=== PATIENT | male | born 1995 | race Caucasian/White ===

== ENCOUNTER 2021-08-23 22:50 | Emergency (ER) | payer OTHER ==
[~2021-08-23] VITALS: Ht 180.3 cm; Wt 109.0 kg
[2021-08-23 23:26] LABS: HEMATOCRIT 38.4 % (39.0-50.0); HEMOGLOBIN 13.5 g/dl (14.0-18.0); IMMATURE GRANULOCYTES 0.6 % (0.0-5.0); MEAN CELL VOLUME 86.3 fL CALC (80.0-100.0); MEAN CORPUSCULAR HGB 30.3 pG CALC (26.0-32.0); MEAN CORPUSCULAR HGB CONC 35.2 g/dL CAL (32.0-36.0); NEUT# 2.44 thou/uL (1.82-7.42); RED BLOOD COUNT 4.45 mill/uL (4.70-6.10); RED CELL DISTRI WIDTH 11.7 % (11.5-15.5)
[2021-08-23 23:40] LABS: ALBUMIN 4.7 g/dL (3.2-5.0); ALKALINE PHOSPHATASE 78 u/l (38-126); AMYLASE 74 u/l (30-110); ANION GAP 12 (6-22 (CALC)); BILIRUBIN, TOTAL 0.4 mg/dL (0.0-1.4); BUN 14 mg/dL (9-20); BUN/CREATININE RATIO 17 (12-20 (CALC)); CARBON DIOXIDE 27 mmol/l (22-30); CHLORIDE 104 mmol/l (95-108); CPK 68 u/l (52-200); CREATININE 0.8 mg/dL (0.7-1.3); GFR FOR AFR.AMER. > 60 ML/MIN (>=60 (CALC)); GFR OTHER RACES > 60 ML/MIN (>=60 (CALC)); LIPASE 128 u/l (23-300); POTASSIUM 3.9 mmol/l (3.5-5.1); SGOT/AST 39 u/l (17-59); SODIUM 139 mmol/l (137-146); TOTAL PROTEIN 7.5 g/dL (6.3-8.2)
[2021-08-24] MEDS ORDERED: EC-NAPROXEN500 MG PO (00:43)
[2021-08-24] MEDS ORDERED: METHOCARBAMOL500 MG PO (00:43)
[2021-08-24 00:46] VITALS: BP 143/89
== END 2021-08-24 01:00 | disposition home or self-care (01) | DRG 204 ==
LOC: ED 22:50
PROVIDERS: Internal Medicine
DX: R07.81 Pleurodynia (principal); M62.838 Other muscle spasm; W11.XXXA Fall on and from ladder, initial encounter; Y93.E9 Activity, other interior property and clothing maintenance; Y92.009 Unspecified place in unspecified non-institutional (private) residence as the place of occurrence of the external cause

== ENCOUNTER 2021-12-01 20:09 | Emergency (ER) | payer MEDICAID ==
[2021-12-01] VITALS (10 sets, daily range): BP systolic 108–130; BP diastolic 57–70
[~2021-12-01] VITALS: Ht 180.3 cm; Wt 109.0 kg
[~2021-12-01 20:09] MED LIST: EC-NAPROXEN500 MG PO; METHOCARBAMOL500 MG PO
[2021-12-01 21:04] LABS: HEMATOCRIT 38.2 % (39.0-50.0); HEMOGLOBIN 13.2 g/dl (14.0-18.0); IMMATURE GRANULOCYTES 1.2 % (0.0-5.0); MEAN CELL VOLUME 86.2 fL CALC (80.0-100.0); MEAN CORPUSCULAR HGB 29.8 pG CALC (26.0-32.0); MEAN CORPUSCULAR HGB CONC 34.6 g/dL CAL (32.0-36.0); NEUT# 2.34 thou/uL (1.82-7.42); RED BLOOD COUNT 4.43 mill/uL (4.70-6.10); RED CELL DISTRI WIDTH 12.6 % (11.5-15.5)
[2021-12-01 21:11] LABS: ALBUMIN 4.4 g/dL (3.2-5.0); ALKALINE PHOSPHATASE 60 u/l (38-126); ANION GAP 14 (6-22 (CALC)); BILIRUBIN, TOTAL 0.3 mg/dL (0.0-1.4); BUN 15 mg/dL (9-20); BUN/CREATININE RATIO 18 (12-20 (CALC)); CARBON DIOXIDE 24 mmol/l (22-30); CHLORIDE 106 mmol/l (95-108); CREATININE 0.8 mg/dL (0.7-1.3); GFR FOR AFR.AMER. > 60 ML/MIN (>=60 (CALC)); GFR OTHER RACES > 60 ML/MIN (>=60 (CALC)); POTASSIUM 3.5 mmol/l (3.5-5.1); SGOT/AST 43 u/l (17-59); SODIUM 140 mmol/l (137-146)
[2021-12-01 21:17] LABS: ACT PARTIAL THROMBO TIME 17.9 SECONDS (20.0-32.5); PROTHROMBIN TIME 9.7 SECONDS (9.0-12.5)
[2021-12-01 23:52] LABS: URINE BILIRUBIN - DIPSTICK NEGATIVE (NEGATIVE); URINE BLOOD DIPSTICK NEGATIVE (NEGATIVE); URINE CLARITY SL CLOUDY; URINE COLOR YELLOW; URINE GLUCOSE - DIPSTICK NEGATIVE (NEGATIVE); URINE KETONE NEGATIVE (NEGATIVE); URINE LEUK ESTERASE NEGATIVE (Negative); URINE NITRITE - DIPSTICK NEGATIVE (Negative); URINE PROTEIN - DIPSTICK NEGATIVE (NEG-TRACE); URINE SPECIFIC GRAVITY 1.025; URINE UROBILINOGEN - DIPSTICK 0.2 E.U./dL (0.2)
[2021-12-02 00:01] VITALS: BP 98/61
[2021-12-02 00:16] VITALS: BP 114/74
[2021-12-02] MEDS ORDERED: VOLTAREN75 MG PO (00:17)
[2021-12-02] MEDS ORDERED: LORTAB5 PO (00:17)
[2021-12-02 00:29] VITALS: BP 114/74
== END 2021-12-02 00:42 | disposition home or self-care (01) ==
LOC: ED 20:09
PROVIDERS: Family Medicine
DX: S20.212A Contusion of left front wall of thorax, initial encounter (principal); S30.1XXA Contusion of abdominal wall, initial encounter; S70.01XA Contusion of right hip, initial encounter; V86.56XA Driver of dirt bike or motor/cross bike injured in nontraffic accident, initial encounter; Y93.I9 Activity, other involving external motion; Y92.73 Farm field as the place of occurrence of the external cause

== ENCOUNTER 2022-03-25 23:45 | Emergency (ER) | payer SELFPAY ==
[~2022-03-25] VITALS: Ht 180.3 cm; Wt 104.5 kg
[~2022-03-25 23:45] MED LIST changes: +LORTAB5 PO; +VOLTAREN75 MG PO
[2022-03-26 00:25] LABS: BASO% 0.5 % (0-3); EOS% 6.2 % (0-8); HEMATOCRIT 38.3 % (39.0-50.0); HEMOGLOBIN 12.6 g/dl (14.0-18.0); IMMATURE GRANULOCYTES 0.9 % (0.0-5.0); LYMPH% 33.2 % (15-41); MEAN CELL VOLUME 86.1 fL CALC (80.0-100.0); MEAN CORPUSCULAR HGB 28.3 pG CALC (26.0-32.0); MEAN CORPUSCULAR HGB CONC 32.9 g/dL CAL (32.0-36.0); MONO% 12.7 % (2-13); NEUT# 2.65 thou/uL (1.82-7.42); NEUT% 46.5 % (42-76); RED BLOOD COUNT 4.45 mill/uL (4.70-6.10)
[2022-03-26 00:36] LABS: ALBUMIN 4.9 g/dL (3.2-5.0); ALKALINE PHOSPHATASE 69 u/l (38-126); ANION GAP 15 (6-22 (CALC)); BILIRUBIN, TOTAL 0.3 mg/dL (0.2-1.3); BUN 14 mg/dL (9-20); BUN/CREATININE RATIO 17 (12-20 (CALC)); CARBON DIOXIDE 24 mmol/l (22-30); CHLORIDE 105 mmol/l (95-108); CREATININE 0.9 mg/dL (0.7-1.3); GFR FOR AFR.AMER. > 60 ML/MIN (>=60 (CALC)); GFR OTHER RACES > 60 ML/MIN (>=60 (CALC)); LIPASE 110 u/l (23-300); POTASSIUM 3.7 mmol/l (3.5-5.1); SGOT/AST 44 u/l (17-59); SODIUM 140 mmol/l (137-146); TOTAL PROTEIN 7.8 g/dL (6.3-8.2)
[2022-03-26 01:32] LABS: URINE BILIRUBIN - DIPSTICK NEGATIVE (NEGATIVE); URINE BLOOD DIPSTICK NEGATIVE (NEGATIVE); URINE COLOR YELLOW; URINE GLUCOSE - DIPSTICK NEGATIVE (NEGATIVE); URINE KETONE NEGATIVE (NEGATIVE); URINE LEUK ESTERASE NEGATIVE (NEGATIVE); URINE NITRITE - DIPSTICK NEGATIVE (Negative); URINE PROTEIN - DIPSTICK NEGATIVE (NEG-TRACE); URINE UROBILINOGEN - DIPSTICK 0.2 E.U./dL (0.2)
[2022-03-26] MEDS ORDERED: PROMETHAZINE HY25 M1 PO (04:46)
[2022-03-26] MEDS ORDERED: DICYCLOMINE10 MG PO (04:46)
[2022-03-26 04:48] VITALS: BP 125/78
== END 2022-03-26 05:06 | disposition home or self-care (01) | DRG 392 ==
LOC: ED 23:45
PROVIDERS: Family Medicine
DX: A08.4 Viral intestinal infection, unspecified (principal)

== ENCOUNTER 2022-04-19 12:52 | Emergency (ER) | payer SELFPAY ==
[~2022-04-19] VITALS: Ht 180.3 cm; Wt 116.0 kg
[~2022-04-19 12:52] MED LIST changes: +DICYCLOMINE10 MG PO; +PROMETHAZINE HY25 M1 PO
[2022-04-19 13:00] VITALS: BP 127/72
[2022-04-19 13:15] VITALS: BP 131/81
[2022-04-19 13:31] VITALS: BP 136/79
[2022-04-19 13:40] LABS: BASO% 0.5 % (0-3); EOS% 4.7 % (0-8); HEMATOCRIT 36.2 % (39.0-50.0); HEMOGLOBIN 11.8 g/dl (14.0-18.0); LYMPH% 27.5 % (15-41); MEAN CELL VOLUME 83.8 fL CALC (80.0-100.0); MEAN CORPUSCULAR HGB 27.3 pG CALC (26.0-32.0); MEAN CORPUSCULAR HGB CONC 32.6 g/dL CAL (32.0-36.0); MONO% 12.3 % (2-13); NEUT# 2.06 thou/uL (1.82-7.42); RED BLOOD COUNT 4.32 mill/uL (4.70-6.10); RED CELL DISTRI WIDTH 12.5 % (11.5-15.5)
[2022-04-19 13:43] LABS: ALBUMIN 4.9 g/dL (3.2-5.0); ALKALINE PHOSPHATASE 70 u/l (38-126); BUN 14 mg/dL (9-20); BUN/CREATININE RATIO 17 (12-20 (CALC)); CHLORIDE 101 mmol/l (95-108); CREATININE 0.8 mg/dL (0.7-1.3); GFR FOR AFR.AMER. > 60 ML/MIN (>=60 (CALC)); GFR OTHER RACES > 60 ML/MIN (>=60 (CALC)); POTASSIUM 3.7 mmol/l (3.5-5.1); SGOT/AST 56 u/l (17-59); SODIUM 141 mmol/l (137-146); TOTAL PROTEIN 7.5 g/dL (6.3-8.2)
[2022-04-19 13:44] LABS: ANION GAP 15 (6-22 (CALC)); BILIRUBIN, TOTAL 0.5 mg/dL (0.2-1.3); CARBON DIOXIDE 29 mmol/l (22-30)
[2022-04-19 14:46] VITALS: BP 118/64
[2022-04-19 16:28] VITALS: BP 118/64
== END 2022-04-19 16:30 | disposition home or self-care (01) | DRG 204 ==
LOC: ED 12:52
PROVIDERS: Family Medicine
DX: R07.81 Pleurodynia (principal); M54.9 Dorsalgia, unspecified; W55.22XA Struck by cow, initial encounter

== ENCOUNTER 2022-04-21 16:05 | Emergency (ER) | payer SELFPAY ==
[2022-04-21] VITALS (10 sets, daily range): BP systolic 131–162; BP diastolic 82–113
[~2022-04-21] VITALS: Ht 180.3 cm; Wt 116.0 kg
[2022-04-21 18:24] LABS: BASO% 0.4 % (0-3); EOS% 2.8 % (0-8); HEMATOCRIT 35.4 % (39.0-50.0); HEMOGLOBIN 11.5 g/dl (14.0-18.0); IMMATURE GRANULOCYTES 0.8 % (0.0-5.0); LYMPH% 19.6 % (15-41); MEAN CELL VOLUME 85.1 fL CALC (80.0-100.0); MEAN CORPUSCULAR HGB 27.6 pG CALC (26.0-32.0); MEAN CORPUSCULAR HGB CONC 32.5 g/dL CAL (32.0-36.0); MONO% 14.1 % (2-13); NEUT# 3.09 thou/uL (1.82-7.42); NEUT% 62.3 % (42-76); RED BLOOD COUNT 4.16 mill/uL (4.70-6.10); RED CELL DISTRI WIDTH 12.4 % (11.5-15.5)
[2022-04-21] MEDS ORDERED: LORTAB 5/3255 MG PO (18:29)
[2022-04-21 18:37] LABS: URINE BILIRUBIN - DIPSTICK NEGATIVE (NEGATIVE); URINE BLOOD DIPSTICK LARGE (NEGATIVE); URINE COLOR YELLOW; URINE GLUCOSE - DIPSTICK NEGATIVE (NEGATIVE); URINE KETONE NEGATIVE (NEGATIVE); URINE LEUK ESTERASE NEGATIVE (NEGATIVE); URINE PROTEIN - DIPSTICK NEGATIVE (NEG-TRACE); URINE SPECIFIC GRAVITY 1.025; URINE UROBILINOGEN - DIPSTICK 0.2 E.U./dL (0.2)
[2022-04-21 18:38] LABS: ALBUMIN 4.7 g/dL (3.2-5.0); ALKALINE PHOSPHATASE 68 u/l (38-126); AMYLASE 72 u/l (30-110); ANION GAP 14 (6-22 (CALC)); BILIRUBIN, TOTAL 0.4 mg/dL (0.2-1.3); BUN 10 mg/dL (9-20); BUN/CREATININE RATIO 15 (12-20 (CALC)); CARBON DIOXIDE 26 mmol/l (22-30); CHLORIDE 103 mmol/l (95-108); CREATININE 0.7 mg/dL (0.7-1.3); GFR FOR AFR.AMER. > 60 ML/MIN (>=60 (CALC)); GFR OTHER RACES > 60 ML/MIN (>=60 (CALC)); LIPASE 77 u/l (23-300); POTASSIUM 3.8 mmol/l (3.5-5.1); SGOT/AST 58 u/l (17-59); SODIUM 139 mmol/l (137-146); TOTAL PROTEIN 7.6 g/dL (6.3-8.2)
[2022-04-21 18:40] LABS: URINE NITRITE - DIPSTICK NEGATIVE (Negative)
[2022-04-21 18:43] LABS: URINE AMORPH SEDIMENT MANY hpf (NONE-FER); URINE WBC 0-2 WBC/hpf (0-5)
[2022-04-21] MEDS ORDERED: PROTONIX40 M2 PO (20:18)
[2022-04-21] MEDS ORDERED: TRAMADOL HYDROC50 M1 PO (20:18)
== END 2022-04-21 20:49 | disposition home or self-care (01) | DRG 696 ==
LOC: ED 16:05
PROVIDERS: Nurse Practitioner
DX: R31.9 Hematuria, unspecified (principal); R10.9 Unspecified abdominal pain
CPT/HCPCS: S0164

== ENCOUNTER 2022-05-15 21:44 | Emergency (ER) | payer SELFPAY ==
[~2022-05-15] VITALS: Ht 180.3 cm; Wt 115.4 kg
[~2022-05-15 21:44] MED LIST changes: +LORTAB 5/3255 MG PO; +PROTONIX40 M2 PO; +TRAMADOL HYDROC50 M1 PO
[2022-05-15 22:42] LABS: BASO% 0.2 % (0-3); EOS% 3.2 % (0-8); HEMATOCRIT 34.5 % (39.0-50.0); HEMOGLOBIN 11.3 g/dl (14.0-18.0); IMMATURE GRANULOCYTES 0.4 % (0.0-5.0); LYMPH% 22.6 % (15-41); MEAN CELL VOLUME 83.7 fL CALC (80.0-100.0); MEAN CORPUSCULAR HGB 27.4 pG CALC (26.0-32.0); MEAN CORPUSCULAR HGB CONC 32.8 g/dL CAL (32.0-36.0); MONO% 18.5 % (2-13); NEUT# 2.78 thou/uL (1.82-7.42); NEUT% 55.1 % (42-76); RED BLOOD COUNT 4.12 mill/uL (4.70-6.10); RED CELL DISTRI WIDTH 13.4 % (11.5-15.5)
[2022-05-15 22:54] LABS: ALBUMIN 4.5 g/dL (3.2-5.0); ALKALINE PHOSPHATASE 64 u/l (38-126); ANION GAP 11 (6-22 (CALC)); BILIRUBIN, TOTAL 0.3 mg/dL (0.2-1.3); BUN 11 mg/dL (9-20); BUN/CREATININE RATIO 12 (12-20 (CALC)); CARBON DIOXIDE 26 mmol/l (22-30); CHLORIDE 107 mmol/l (95-108); CREATININE 0.9 mg/dL (0.7-1.3); GFR FOR AFR.AMER. > 60 ML/MIN (>=60 (CALC)); GFR OTHER RACES > 60 ML/MIN (>=60 (CALC)); POTASSIUM 3.6 mmol/l (3.5-5.1); SGOT/AST 54 u/l (17-59); SODIUM 140 mmol/l (137-146); TOTAL PROTEIN 7.1 g/dL (6.3-8.2)
[2022-05-15] MEDS ORDERED: ULTRAM50 MG PO (23:33)
[2022-05-15 23:36] VITALS: BP 121/71
[2022-05-15 23:41] LABS: URINE BILIRUBIN - DIPSTICK NEGATIVE (NEGATIVE); URINE BLOOD DIPSTICK NEGATIVE (NEGATIVE); URINE COLOR YELLOW; URINE GLUCOSE - DIPSTICK NEGATIVE (NEGATIVE); URINE KETONE NEGATIVE (NEGATIVE); URINE LEUK ESTERASE NEGATIVE (NEGATIVE); URINE PROTEIN - DIPSTICK NEGATIVE (NEG-TRACE); URINE SPECIFIC GRAVITY 1.015; URINE UROBILINOGEN - DIPSTICK 0.2 E.U./dL (0.2)
[2022-05-15 23:44] LABS: URINE NITRITE - DIPSTICK NEGATIVE (Negative)
[2022-05-15 23:45] VITALS: BP 125/73
[2022-05-16 00:03] VITALS: BP 125/73
== END 2022-05-16 00:30 | disposition home or self-care (01) | DRG 605 ==
LOC: ED 21:44
PROVIDERS: Emergency Medicine
DX: S30.0XXA Contusion of lower back and pelvis, initial encounter (principal); S40.011A Contusion of right shoulder, initial encounter; W18.30XA Fall on same level, unspecified, initial encounter

== ENCOUNTER 2022-08-02 17:58 | Emergency (ER) | payer SELFPAY ==
[~2022-08-02] VITALS: Ht 180.3 cm; Wt 113.0 kg
[~2022-08-02 17:58] MED LIST changes: +ULTRAM50 MG PO
[2022-08-02 18:05] VITALS: BP 135/103
[2022-08-02] MEDS ORDERED: LORTAB 5/3255 MG PO (18:39)
[2022-08-02 19:11] LABS: BASO% 0.4 % (0-3); EOS% 6.1 % (0-8); HEMATOCRIT 34.5 % (39.0-50.0); HEMOGLOBIN 11.5 g/dl (14.0-18.0); IMMATURE GRANULOCYTES 1.5 % (0.0-5.0); LYMPH% 24.2 % (15-41); MEAN CELL VOLUME 84.6 fL CALC (80.0-100.0); MEAN CORPUSCULAR HGB 28.2 pG CALC (26.0-32.0); MEAN CORPUSCULAR HGB CONC 33.3 g/dL CAL (32.0-36.0); MONO% 13.5 % (2-13); NEUT# 2.49 thou/uL (1.82-7.42); NEUT% 54.3 % (42-76); RED BLOOD COUNT 4.08 mill/uL (4.70-6.10); RED CELL DISTRI WIDTH 12.7 % (11.5-15.5)
[2022-08-02 19:24] LABS: ALBUMIN 4.5 g/dL (3.2-5.0); ALKALINE PHOSPHATASE 80 u/l (38-126); ANION GAP 14 (6-22 (CALC)); BILIRUBIN, TOTAL 0.2 mg/dL (0.2-1.3); BUN 11 mg/dL (9-20); BUN/CREATININE RATIO 15 (12-20 (CALC)); CARBON DIOXIDE 24 mmol/l (22-30); CHLORIDE 106 mmol/l (95-108); CREATININE 0.7 mg/dL (0.7-1.3); GFR FOR AFR.AMER. > 60 ML/MIN (>=60 (CALC)); GFR OTHER RACES > 60 ML/MIN (>=60 (CALC)); POTASSIUM 3.8 mmol/l (3.5-5.1); SGOT/AST 40 u/l (17-59); SODIUM 141 mmol/l (137-146); TOTAL PROTEIN 7.1 g/dL (6.3-8.2)
[2022-08-02 19:54] LABS: URINE BILIRUBIN - DIPSTICK NEGATIVE (NEGATIVE); URINE BLOOD DIPSTICK NEGATIVE (NEGATIVE); URINE COLOR YELLOW; URINE GLUCOSE - DIPSTICK NEGATIVE (NEGATIVE); URINE KETONE NEGATIVE (NEGATIVE); URINE LEUK ESTERASE NEGATIVE (NEGATIVE); URINE PROTEIN - DIPSTICK NEGATIVE (NEG-TRACE); URINE SPECIFIC GRAVITY 1.015; URINE UROBILINOGEN - DIPSTICK 0.2 E.U./dL (0.2)
[2022-08-02 19:55] LABS: URINE NITRITE - DIPSTICK NEGATIVE (Negative)
[2022-08-02] MEDS ORDERED: TRAMADOL HYDROC50 M1 PO (19:58)
[2022-08-02] MEDS ORDERED: METHOCARBAMOL500 MG PO (19:58)
[2022-08-02 20:10] VITALS: BP 130/89
== END 2022-08-02 20:10 | disposition home or self-care (01) | DRG 204 ==
LOC: ED 17:58
PROVIDERS: Nurse Practitioner
DX: R07.81 Pleurodynia (principal); R10.10 Upper abdominal pain, unspecified; D64.9 Anemia, unspecified